=== PATIENT | male | born 2000 | race Caucasian/White ===

== ENCOUNTER 2019-05-07 15:01 | Emergency (ER) | payer OTHER ==
[~2019-05-07] VITALS: Ht 167.6 cm; Wt 111.8 kg
[2019-05-07 15:03] VITALS: BP 118/70; Ht 167.6 cm; Wt 111.8 kg
== END 2019-05-07 16:00 | disposition home or self-care (01) ==
LOC: ED 15:01
DX: S61.031A Puncture wound without foreign body of right thumb without damage to nail, initial encounter (principal); S61.230A Puncture wound without foreign body of right index finger without damage to nail, initial encounter; Z13.89 Encounter for screening for other disorder; W27.3XXA Contact with needle (sewing), initial encounter; Y93.89 Activity, other specified; Y92.89 Other specified places as the place of occurrence of the external cause; Y99.8 Other external cause status

== ENCOUNTER 2019-06-22 10:04 | Emergency (ER) | payer OTHER ==
[~2019-06-22] VITALS: Ht 167.6 cm; Wt 111.4 kg
[2019-06-22 10:19] VITALS: BP 119/62; Ht 167.6 cm; Wt 111.4 kg
== END 2019-06-22 10:44 | disposition home or self-care (01) ==
LOC: ED 10:04
DX: T75.89XD Other specified effects of external causes, subsequent encounter (principal); X58.XXXD Exposure to other specified factors, subsequent encounter